=== PATIENT | male | born 1930 | race Caucasian/White ===

== ENCOUNTER 2017-04-12 06:01 | Inpatient (IN) | payer MEDICARE, BC ==
[~2017-04-12] VITALS: Ht 170.2 cm; Wt 79.2 kg
--- NOTE | ~2017-04-12 | WND ---
ADMIT: 04/12/2017 RM/LOC: 412 [facility] MR#: [id number] 2620 [facility] [address] [place] [phone] [place] [address] Wound Care Clinic SEX: M AGE: 86 : 1930 DATE OF VISIT: 04/19/2017 TIME IN: 8:10. TIME OUT: 8:20. REASON FOR VISIT: Ostomy pouch change and education. This is a request for wound care from Dr. Muniz. HISTORY OF PRESENT ILLNESS: This is an 86-year-old male, who was first seen by [facility] on 04/11/2017, when he presented for ostomy education and stoma marking. He went to Surgery on 04/12/2017, for recurrent low lying rectal cancer. He had recently moved from the ICU to the med/surg floor. He did have preop teaching with ostomy cares; however, he had been unteachable since surgery because of his cognitive status. REVIEW OF SYSTEMS: He is examined in his hospital room where he is initially sleeping. He does awaken to his name. He does answer questions and then falls back to sleep. He denies any recent fever or chills. No nausea or vomiting. No cough, cold, or chest pain. He states he is feeling better. He denies any pain in his abdomen. Unable to do any other review of systems since he does fall quickly asleep. PHYSICAL EXAMINATION: VITAL SIGNS: Temperature 98.6, pulse 83, respirations 17, blood pressure 141/68, and O2 sats on room air is 94%. Focused exam is to his abdomen. His abdomen is less distended. He continues to have his Demar-Wright in the right lower quadrant with serosanguineous drainage noted. He has a midline incision that is 11 cm with 10 arnel. There is some oozing of serosanguineous drainage. There is some gapping between the middle sutures. His stoma is on the left side, it is 2 cm x 3.5 cm. Mucocutaneous junction is intact with sutures. Able to digitalize the stoma. The stoma is red, moist, and flat with some mucus. It is showing no output in the appliance currently. ASSESSMENT: End colostomy status post open abdominoperineal resection due to rectal cancer. ADMIT: 04/12/2017 RM/LOC: 412 [facility] MR#: [id number] [address] [address] [facility] [place] [id number] Wound Care Clinic SEX: M AGE: 86 : 1930 TREATMENT PLAN: He had consented to Secure Start prior to surgery and this was faxed to [facility]. He also requested his ostomy supplies be e-scribed to [facility] in [place] and that has been done. The old pouch was removed. Peristomal area was cleansed with water only. No Sting Barrier wipe was placed peristomal area. [place] New Image 70 mm wafer #[id number] with pouch #[id number] was reapplied. The dressing to his midline incision was also changed with an ABD applied. At this point in time, still unable to do much teaching to the patient because of his cognitive status, but Wound Care will continue to follow. Thank you for this referral. Padma Hernández APRN/ dann JOB #: [id number] CC: Arcenio Muniz, Attending Physician Nael White, Family Physician
--- NOTE | ~2017-04-12 | WND ---
ADMIT: 04/12/2017 RM/LOC: W.Genia [facility] MR#: [id number] [facility]#: [id number] [address] [facility] [address] [place] [phone] KWASI, [place] [address] Wound Care Clinic SEX: M AGE: 86 : 1930 DATE OF VISIT: 04/11/2017 TIME IN: 1130 hours. TIME OUT: 1210 hours. The entire visit was spent in ostomy education and stomal marking. REASON FOR VISIT: This is a request for ostomy cares from Dr. Muniz for preop stoma marking and preop stoma education. HISTORY OF PRESENT ILLNESS: This is an 86-year-old male, who was noted to have low-lying rectal cancer in May of 2016. On 05/08/2016, he underwent a transanal excision of a low-lying rectal cancer. He continued to have rectal bleeding and was seen by Dr. Muniz and he is scheduled for an open low anterior resection for rectal cancer tomorrow on 04/12/2017. He presents today with his daughter for pre-admission as well as preop stoma teaching and marking. PAST MEDICAL HISTORY: Low lying rectal cancer. Bloody stools. Essential hypertension. Hyperlipidemia. Stroke syndrome. Cataract surgery. Partial colectomy. Rotator cuff repair. ALLERGIES: No known medication allergies. CURRENT MEDICATIONS: 1. Pantoprazole 40 mg at bedtime for gastric reflux. 2. Clopidogrel 75 mg p.o. at bedtime. 3. Vitamin D 1000 units p.o. daily. 4. Augmentin 875 mg p.o. twice daily. 5. [place] 5/325, one to two tablets p.o. every 4 hours p.r.n. pain. SOCIAL HISTORY: He has had an 8th grade education, never smoked. No history of alcohol or chemical use. He does live near [place]. He is retired. 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 FAMILY HISTORY: Significant for heart disease, cancer, hypertension, and stroke. REVIEW OF SYSTEMS: He is examined in the pre-admission areas where he is awake, alert, and oriented. He does wear glasses for vision. He is slightly hard of hearing. His daughter is present at the visit. Denies any current fever or chills. No nausea or vomiting. No cough, cold, or congestion. No chest pain. He has been having bloody stools, but daughter reports he has not had one for 2 days. PHYSICAL EXAMINATION: Focused exam is to his abdomen. His abdomen is rounded. He is examined in both the standing, sitting, and supine position. His rectus muscle is identified. ADMIT: 04/12/2017 RM/LOC: W.01 [facility] MR#: [id number] [address] [place], [place] [id number] [place] [address], [place] [address] Wound Care Clinic SEX: M AGE: 86 : 1930 ASSESSMENT: Preop stoma marking and education for low anterior resection for low-lying rectal cancer. TREATMENT PLAN: After examining his stomach in the standing, sitting, and supine position, the rectus muscle was identified. He does have a round protuberant abdomen; therefore, needed to place the stoma marking up in the upper quadrant. He was unable to visualize the left lower quadrant. The visit was spent in ostomy education of the patient and the daughter. Appropriate questions were asked. They received the colostomy packet. Hands- on demonstration was done regarding two piece wafers and pouch systems. They are instructed to not cleanse the stoma marking off. A request to use [facility] in [place] since the daughter has a relative working there. They voiced understanding of physical findings and treatment plan. Thank you for this referral and Wound will follow him both as an inpatient and after surgery. Padma Hernández APRN/ dann JOB #: [id number] CC: Arcenio Muniz, Attending Physician UNKNOWN, Family Physician
--- NOTE | ~2017-04-12 | WND ---
ADMIT: 04/12/2017 RM/LOC: 310 [facility] MR#: [id number] 2620 [facility] [address] [place] [phone] [place] [address] Wound Care Clinic SEX: M AGE: 86 : 1930 DATE OF VISIT: 04/17/2017 TIME IN: 1435 hours. TIME OUT: 1440 hours. HISTORY OF PRESENT ILLNESS: This is an 86-year-old male, who was seen preoperatively for stoma marking for an abdominoperitoneal resection with end colostomy. He had surgery on 04/12/2017 for recurrent low-lying rectal cancer. He was seen on 04/15/2017 by Vasyl Wilder, certified Wound Ostomy Nurse, and his appliance to his stoma was changed. According to the staff, he had a very restless night last night. Not only did he pull off his ostomy pouch, but he also pulled out some of his other lines. Therefore, his last pouch change was last evening. Preop teaching was done about ostomy cares with Mr. Villalpando as well as his daughter. However, since surgery, he has not been teachable because of his cognitive status. PAST MEDICAL HISTORY: Low lying rectal cancer. Bloody stools. Essential hypertension. Hyperlipidemia. Stroke syndrome. Cataract surgery. Partial colectomy. Rotator cuff repair. CURRENT MEDICATIONS: Per the MAR. Please see the MAR for further details. 1. Coreg. 2. Pepcid. 3. DuoNeb. 4. Lovenox. 5. Habitrol. 6. Ativan. 7. D5 and half with KCl. 8. Naropin. 9. Ellis-Synephrine. 10.Sodium chloride addEASE. 11.Zosyn. PRN medications: 1. Benadryl. 2. Colace. 3. Compazine. 4. Maalox. 5. Oxy-IR. 6. Seroquel. 7. Tylenol. 8. Tylenol suppository. 9. Nitrostat. 10.Nitro-Bid. 11.Ativan. 12.Benadryl. 13.Lopressor. ADMIT: 04/12/2017 RM/LOC: 310 [facility] MR#: [id number] [address] [address] [facility], [place] [facility] [place] [id number] Wound Care Clinic SEX: M AGE: 86 : 1930 14.Morphine. 15.Narcan. ALLERGIES: No known medication allergies. SOCIAL HISTORY: He has 8th grade education. He states he never smoked, but he did use chewing tobacco. No history of alcohol or chemical use. He lives in [place], [place]. 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 FAMILY HISTORY: Significant for heart disease, cancer, hypertension, and stroke. REVIEW OF SYSTEMS: He is examined in his ICU bed where he does have a sitter in place. He is very restless and does moan. He does not open his eyes. Unable to do any other review of systems. PHYSICAL EXAMINATION: Focused exam is to his abdomen. His abdomen is slightly distended. His midline incision is intact with arnel. There are a few gaps between the arnel with serosanguineous oozing noted. To his right lower quadrant is his Demar-Wright with serosanguineous drainage. To the left side is his stoma that is moist, pink, and elevated. There is serosanguineous effluent small amount in the pouching system. The pouch was not removed on today's visit since it was changed within the last 24 hours. We will continue with previously written orders to empty the pouch when 12/04 full. Change the pouching system every 3-5 days and p.r.n. leakage. Follow up [facility] two weeks after discharge. The patient had requested [facility] for ostomy supplies prior to surgery. He also signed the [employer] form. Thank you for this referral. Wound will continue to follow. No family members currently at bedside. Padma Hernández APRN/ dann JOB #: [id number] CC: Arcenio Muniz, Attending Physician Nael White, Family Physician
--- NOTE | ~2017-04-12 | OR ---
ADMIT: 04/12/2017 RM/LOC: 310 [facility] MR#: [id number] [address] [address] [place] [address] Operative/Delivery Room Report SEX: M AGE: 86 : 1930 SURGERY DATE: 04/12/2017 SURGEON: Arcenio Muniz MD [employer] AGENT: Bj Dhillon MD PRE-PROCEDURE DIAGNOSIS: Recurrent low-lying rectal cancer. POSTPROCEDURE DIAGNOSIS: Recurrent low-lying rectal cancer. PROCEDURE: Abdominoperineal resection with end colostomy. INDICATIONS: The patient is an 86-year-old with a known low-lying rectal cancer, who has refused any type of therapy for quite some time, he consented to a transanal excision a year or two ago which we knew was not adequate therapy for this lesion, has developed a recurrence now with anal pain and persistent bleeding, who presents for palliative abdominoperineal resection. DESCRIPTION OF PROCEDURE: The patient was taken to the operating room after preoperative thoracic epidural placement. He was placed on table in supine position. He was anesthetized and intubated. Legs were placed in low lithotomy position. The perineum and abdomen were prepped and draped in normal sterile fashion. The case was begun by making a vertical low-lying midline skin incision with a #10 blade. Dissection was carried down through subcutaneous fat fascia and perineum using electrocautery. Placed the bowel for into the abdomen, retracted the small bowel loops with moistened laps in the upper abdomen. Divided the proximal sigmoid with a SHASHANK stapler. Divided the rectosigmoid mesentery between clamps and 0 Vicryl ties. Divided the superior hemorrhoidal vein in the same manner. We had previously mobilized the sigmoid from the retroperitoneum along the white line of Toldt using electrocautery, identifying the left ureter. We then scored the peritoneum on each pelvic sulcus along each side of the rectum well down into the pelvis, obtained access to the mesorectal plane. Continued this dissection circumferentially clear down to the pelvic floor where there was a large amount of very bulky cancer within the low-lying rectum which made the dissection very challenging and difficult. We were able to get around the mass down to the pelvic floor. I then went below and made an elliptical vertical skin incision around the anal skin using Gelpi retractors, then Emmett's. We were able to continue our dissection first posteriorly, just anterior to the coccyx obtaining access to the pelvic space and then circumferentially continued our dissection with electrocautery to divide the pelvic floor musculature. We eviscerated the colon out through the anal opening and completed the dissection again using electrocautery until the specimen was completely removed. We irrigated the pelvis and anal canal copiously with about 2 L of warm saline, the irrigant was clear. I did not have any obvious bleeding issues from below. Dr. Dhillon was then working from above. I closed the pelvic floor musculature with interrupted 0 Vicryl suture, the subcutaneous fascia with interrupted 0 Vicryl suture, subdermal layer with 0 Vicryl suture, and the skin with interrupted 3- [address] Dhillon had irrigated the pelvis. Jeremie, ADMIT: 04/12/2017 RM/LOC: 310 [facility] MR#: [id number] [address] [place] [phone] [place] [address] Operative/Delivery Room Report SEX: M AGE: 86 : 1930 sponge, and instrument counts were correct. He placed a KAMILA drain through a right lower quadrant stab wound for postoperative drainage. We did have a small hole in the mid rectum during the course of our dissection creating some fecal contamination. We sutured the drain in place with 3-0 nylon suture. He created a left lower quadrant ostomy defect that had been previously marked for placement with a knife and cautery, brought the left colon up through this defect, closed the midline fascia with running 0 loops PDS suture, the skin with interrupted skin arnel, matured the ostomy, dividing the staple line with cautery, everting the edges to the surrounding dermis with interrupted 3- 0 Vicryl sutures. A stomal appliance was applied over the top. The incision was dressed. The patient tolerated the procedure without difficulty. He was wheeled to recovery room in good condition. Arcenio Muniz MD/ dann JOB #: [id number] CC: Arcenio Muniz, Attending Physician Nael White, Family Physician
--- NOTE | ~2017-04-12 | WND ---
ADMIT: 04/12/2017 RM/LOC: 412 [facility] MR#: [id number] [address] [facility] [address] [place] [phone] [address] [address] Wound Care Clinic SEX: M AGE: 86 : 1930 DATE OF VISIT: 04/23/2017 TIME IN: 1225 hours. TIME OUT: 1240 hours. REASON FOR VISIT: Education and care for colostomy. This is a request for wound care from Dr. Muniz. HISTORY OF PRESENT ILLNESS: This is an 86-year-old male, who was first seen by [facility] on 04/11/2017, when he presented for ostomy education and stomal marking. He went to surgery on 04/12/2017 for recurrent low lying rectal cancer. He had an end colostomy status post open abdominal perineal resection due to the rectal cancer. He had problems with confusion after surgery. He was initially in the intensive care unit. He is now being examined on the Med-Surg floor. REVIEW OF SYSTEMS: He is examined in his hospital room where he is initially sleeping, but he does awaken to his name. He denies any recent fever or chills. No nausea or vomiting. No cough, cold, or chest pain. He says he has no pain in his abdomen. He states that he has no appetite. He also states that, "I really don't wanna learn about it right now" when asked about the ostomy. PHYSICAL EXAMINATION: VITAL SIGNS: Temperature is 97.5, pulse 72, respirations 20, blood pressure 132/72, O2 sats on room air is 97%. Focused exam to his abdomen shows slight distention but soft. He does have his midline incision in place with arnel intact. He has two areas where there are gaps between the arnel; one that measures 1 cm x 0.3 cm, the depth of 0.2 cm. It has a pink wound base. It has serous drainage noted. Distal to this is another one that is open, 0.8 x 0.2, with a depth of 0.2 cm. Casco wound base. No surrounding erythema or induration noted along the suture line. His right lower quadrant is where his drainage tube was previously in and that dressing is intact without any shallow drainage. His stoma is on the left side and is 2 x 2.5 cm, slightly oval and flat. Mucocutaneous junction is intact. Just slight amount of redness right at the mucocutaneous junction. In the pouching system is 50 mL of liquidy stool along with soft formed stool. There is some firmness noted, peristomal area. ASSESSMENT: Functioning end colostomy, status post LAR for rectal cancer. TREATMENT PLAN: According to the records, he will be transferring to the prison unit in [place]. He is reluctant at this time to participate in changing the ostomy. I did explain the procedure as we did it. He did listen. The old ostomy appliance was removed along with the ABD from the midline ADMIT: 04/12/2017 RM/LOC: 412 [facility] MR#: [id number] [address] [place] [phone] [facility] [address] Wound Care Clinic SEX: M AGE: 86 : 1930 incision. The peristomal area was washed with water only. Midline incision was also washed with water only. A new ABD was placed over the midline incision. To the peristomal area, No Sting Barrier wipe was applied. A [place] New Image 70 mm wafer #[id number] with pouch #[id number] was reapplied. I did explain the procedure to the patient while I performed it. Thank you for this referral. Wound Care will follow in 7-10 days after discharge as an outpatient. We will continue to follow as inpatient. His ostomy supply script was sent to [facility] in [place]. His [employer] form was also faxed to [facility]. Thank you for allowing us to care for this gentleman. Padma Hernández APRN/ dann JOB #: [id number] CC: Arcenio Muniz, Attending Physician Nael White, Family Physician
[~2017-04-12 06:01] MED LIST: AUGMENTIN875 MG PO; NORCO 5-325 TA1 EACH PO; PLAVIX75 MG PO; PROTONIX40 MG PO; VITAMIN D1000 UNI1 PO
[2017-04-25] MEDS ORDERED: COREG DPS12.5 MG PO (14:55)
[2017-04-25] MEDS ORDERED: DUONEB DPS3 ML IH (14:55)
[2017-04-25] MEDS ORDERED: BENADRYL A12.5 MG/5 PO (14:56)
[2017-04-25] MEDS ORDERED: HABITROL TP (14:56)
[2017-04-25] MEDS ORDERED: COLACE-DPS100 MG PO (14:57)
[2017-04-25] MEDS ORDERED: COMPAZINE DPS5 MG PO (14:57)
[2017-04-25] MEDS ORDERED: MAALOX DPS30 ML PO (14:58)
[2017-04-25] MEDS ORDERED: ROXICODONE5 MG/5 ML PO (14:58)
[2017-04-25] MEDS ORDERED: NILSTAT PO (14:58)
[2017-04-25] MEDS ORDERED: SEROQUEL25 MG PO (14:59)
[2017-04-25] MEDS ORDERED: TYLENOL DPS325 MG PO (14:59)
[2017-04-25] MEDS ORDERED: ATIVAN2 MG/1 ML IV (15:00)
[2017-04-25] MEDS ORDERED: NITROSTAT0.4 MG SL (15:00)
--- NOTE | 2017-05-06 15:42 | CO ---
ADMIT: 04/12/2017 RM/LOC: 310 [facility] MR#: [id number] 2620 [facility] [address] [place] [phone] [place] [address] Consultation SEX: M AGE: 86 : 1930 DATE OF CONSULTATION: 04/14/2017 ATTENDING PHYSICIAN: Arcenio Muniz CONSULTING PHYSICIAN: Sherice Dhillon MD REASON FOR CONSULT: Medical management. Thank you, Dr. Muniz, for the consult and involving me in this patient's care. HISTORY OF PRESENT ILLNESS: Mr. Villalpando is an 86-year-old man with history of low-lying rectal cancer, diagnosed in May of 2016. On 05/08/2016, he underwent a transanal excision of low-lying rectal cancer and continued to have rectal bleeding. He refused any type of treatment for some time and finally he was scheduled to have a palliative abdominoperineal resection with end colostomy which was done on 04/12/2017. Postoperatively, he was doing fine except for persistent tachycardia with heart rate in 120s to 130s. EKG showed sinus tachycardia. He was also noted to have fever on postop day #1, T- max of 101.6 and had blood-tinged urine. At present, the patient is oriented x1 and is difficult to get any history out of him. Overall, he denies any complaints at this time. PAST MEDICAL HISTORY: 1. Rectal cancer. 2. Hypertension. 3. Hyperlipidemia. 4. Status post cataract surgery. 5. Partial colectomy. 6. Rotator cuff repair. Per the notes, he also had a cerebrovascular accident. ALLERGIES: NO KNOWN DRUG ALLERGIES. CURRENT MEDICATIONS: 1. Lovenox. 3. Vancomycin 1.5 g once daily. 4. Zosyn 3.375 g every 8 hours. SOCIAL HISTORY: Per the notes, he does not drink alcohol or does any recreational drug use. He lives near [place]. FAMILY HISTORY: Significant for heart disease and hypertension. REVIEW OF SYSTEMS: A complete review of systems are unable to obtain as patient is currently not answering all the questions. PHYSICAL EXAMINATION: VITAL SIGNS: Current temperature 99.1, T-max 101.6, ADMIT: 04/12/2017 RM/LOC: 310 [facility] MR#: [id number] [address] [phone] [facility], [place] [address] [place] [address] Consultation SEX: M AGE: 86 : 1930 heart rate 104, respirations 22, blood pressure 153/83, and 93% on 3 L. GENERAL: No acute distress. HEENT: Head is normocephalic and atraumatic. Extraocular movements intact. Oral mucosa dry. LYMPH: No palpable anterior/posterior cervical or supraclavicular lymphadenopathy. CHEST: Clear to auscultation bilaterally. Decreased breath sounds at bases. CARDIOVASCULAR: S1 and S2 heard. Tachycardia. ABDOMEN: Soft, mildly distended. Dressing at the incision site. Colostomy with some bloody drainage. PSYCH: Normal affect. Memory mildly impaired. SKIN: No rash noted on exposed skin. DATA REVIEW: CBC today shows white count of 11.3, hemoglobin 10.4, platelets 207. CMP shows creatinine of 1.1. Normal AST and ALT. His lactic acid was 2.9, which came down to 1.2. Urinalysis showed 47 wbc, and 1722 rbc. Urine culture and blood cultures are pending at this time. ASSESSMENT AND PLAN: 1. Recurrent rectal cancer, status post abdominoperineal resection with end colostomy, postop day#2. His pain is controlled at this time with epidural analgesia. 2. Postop fever likely secondary to atelectasis. Continue incentive spirometry every 1 hour while awake. 3. Urinary tract infection. He is already on antibiotics at this time, and I will narrow his antibiotics once culture is finalized. I will continue him on vancomycin and Zosyn for now. 4. Tachycardia. I will add carvedilol 3.125 mg twice daily and continue with metoprolol IV 5 mg every 8 hours as needed. 5. Hypertension. Thank you for the consult and I will continue to follow the patient. Sherice Dhillon MD/ dann JOB #: [id number] CC: Arcenio Muniz, Attending Physician Nael White, Family Physician
--- NOTE | 2017-05-13 08:54 | DS ---
ADMIT: 04/12/2017 RM/LOC: 412 [facility] MR#: [id number] [address] [id number] KAYLEN VILLALPANDON [place] [address] Discharge Summary SEX: M AGE: 86 : 1930 ADMISSION DATE: 04/12/2017 DISCHARGE DATE: 04/24/2017 ADMITTING DIAGNOSIS: Low-lying rectal cancer. DISMISSAL DIAGNOSES: 1. 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 2. Hypertension. 3. Hyperlipidemia. 4. Status post cataract surgery. 5. Previous rotator cuff repair and colectomy. 6. Previous CVA (cerebrovascular accident). PROCEDURES: Abdominoperineal resection with end colostomy. HOSPITAL COURSE: The patient was an inpatient admit with routine med/surg orders after surgery. He transferred to the floor without any complications. An epidural was placed for pain control and he was started on clears. It was noted that the patient became tachy and agitated immediately after surgery. He transferred down to the ICU and started on Ellis-Synephrine drip. Internal Medicine was consulted. He also started to run a fever and was put on IV antibiotics and screened for sepsis. The patient continued to recover well and was transferred to PCU status on postop day number two. He did have a run of confusion at this time but was transient episode. Epidural was pulled postop day number three. Slowly, the patient's diet was advanced. He had good output through his ostomy. On postop day number five, it was noted that he had great difficulty breathing after lunch and so aspiration pneumonia precautions were in place. He continued to have great difficulty with p.o. so a PICC line was placed and the patient was started on TPN. His abdomen got distended too on postop day number five and so an NG was placed. Slowly the patient began to improve. He was weaned off his pressors and confusion was improving. He was restarted on a diet which he tolerated. A Harris catheter that was placed intraoperatively was pulled on postop day number eight. It was determined the patient would benefit from a swing bed, and so when he was stable the patient transferred to a swing bed on 04/23/2017. PICC line was discontinued along with TPN prior to dismissal. DISCHARGE INSTRUCTIONS: Follow up with Dr. Muniz in [place] 04/29/2017. DISCHARGE MEDICATIONS: 1. Coreg 12.5 mg p.o. b.i.d. 2. DuoNebs inhaled q.4h. 3. Habitrol 14 mg patch daily, remove patch daily. 4. Benadryl 25 mg q.6 p.r.n. 5. Colace 100 mg b.i.d. p.r.n. ADMIT: 04/12/2017 RM/LOC: 412 [facility] MR#: [id number] [address] [place] [id number] [facility] [place] [address] Discharge Summary SEX: M AGE: 86 : 1930 6. Compazine 5 mg q.6h p.r.n. 7. Maalox 30 mL q.6h p.r.n. 8. Nilstat suspension 5 mL q.6h p.r.n. 9. Roxicodone 5 mg q.4 p.r.n. 10.Seroquel 12.5 mg b.i.d. p.r.n. 11.Tylenol 325 mg two tablets q.4h p.r.n. 12.Tylenol 650 mg suppository q.4h p.r.n. 13.Nitrostat 0.4 mg sublingual q.5 minutes x3 p.r.n. 14.Ativan 1 mg q.8h p.r.n. 15.Pantoprazole 40 mg daily. 16.Clopidogrel 75 mg daily. 17.Hydrocodone/acetaminophen 5/325, one tab q.4h p.r.n. SHO Ashley / Arcenio Muniz MD / vdg JOB #: [id number] CC: Arcenio Muniz MD, Attending Physician Nael White DO, Family Physician
== END 2017-04-24 17:30 | DRG 329 ==
LOC: 3ICU 06:01 → WOR 06:01 → 3ICU 13:42 → 4PCU 04-18 19:07
PROVIDERS: ADMIT Surgery
DX: C20 Malignant neoplasm of rectum (principal); G93.41 Metabolic encephalopathy; E46 Unspecified protein-calorie malnutrition; C77.2 Secondary and unspecified malignant neoplasm of intra-abdominal lymph nodes; F05 Delirium due to known physiological condition; N39.0 Urinary tract infection, site not specified; T17.920A Food in respiratory tract, part unspecified causing asphyxiation, initial encounter; J98.11 Atelectasis; I10 Essential (primary) hypertension; E78.5 Hyperlipidemia, unspecified; Z86.73 Personal history of transient ischemic attack (TIA), and cerebral infarction without residual deficits